=== PATIENT | female | born 2000 | race Caucasian/White ===

== ENCOUNTER → 2021-01-15 | Outpatient (REF) | LOC: M EMP 09:23 | PROVIDERS: ATTEND Family Medicine | DX: Z11.52 Encounter for screening for COVID-19 (principal); Z20.822 Contact with and (suspected) exposure to COVID-19 ==

== ENCOUNTER 2021-02-19 17:49 | Emergency (ER) ==
[~2021-02-19] VITALS: Ht 147.3 cm; Wt 59.1 kg
[2021-02-19 17:50] VITALS: BP 127/82
[2021-02-19] MEDS ORDERED: MELA10CA6 PO (18:05)
== END 2021-02-19 19:32 | disposition left against medical advice (07) ==
LOC: M ED 17:49
DX: Z53.29 Procedure and treatment not carried out because of patient's decision for other reasons (principal)

== ENCOUNTER → 2021-05-08 | Outpatient (CLI) | payer OTHER ==
[~2021-05-08] MED LIST: MELA10CA6 PO
== END ==
LOC: M PAIN 08:30
PROVIDERS: ATTEND Nurse Practitioner Family
DX: M54.50 Low back pain, unspecified (principal); G89.29 Other chronic pain; M79.10 Myalgia, unspecified site; M41.9 Scoliosis, unspecified; Z91.018 Allergy to other foods

== ENCOUNTER 2021-06-10 07:00 | Outpatient (RCR) | payer OTHER | END 2021-06-11 | LOC: M PT 07:00 | PROVIDERS: ATTEND Family Medicine | DX: M54.50 Low back pain, unspecified (principal) ==

== ENCOUNTER → 2021-07-06 | Outpatient (CLI) | payer OTHER | LOC: M PAIN 08:30 | PROVIDERS: ATTEND Nurse Practitioner Family | DX: M54.50 Low back pain, unspecified (principal); M79.10 Myalgia, unspecified site; M41.9 Scoliosis, unspecified; Z91.018 Allergy to other foods ==

== ENCOUNTER 2021-07-08 07:00 | Outpatient (RCR) | payer OTHER | END 2021-07-11 | LOC: M PT 07:00 | PROVIDERS: ATTEND Family Medicine | DX: M54.50 Low back pain, unspecified (principal) ==

== ENCOUNTER 2021-08-05 06:14 | Day surgery (SDC) | payer OTHER ==
[~2021-08-05] VITALS: Ht 147.3 cm; Wt 57.5 kg
[~2021-08-05 06:14] MED LIST changes: +VITA100024 PO; +XULA1DIS TOP; +ceFAZolin SOD 2 GM in IV 1 EA IV ONE
[2021-08-05] MEDS ORDERED: INSULIN LISPRO (NovoLOG) PER UNIT SC PRN ×2 (06:35→10:25)
[2021-08-05] MEDS ORDERED: LR 1,000 ML IV SCH ×2 (06:35→10:25)
[2021-08-05] MEDS ORDERED: propofoL 500 MG/50 ML VIAL As Ordered ONE (07:14)
[2021-08-05] MEDS ORDERED: MIDAZOLAM INJ 2MG/2ML VIAL (J2250 PER 1MG) As Ordered ONE ×2 (07:14→07:57)
[2021-08-05] MEDS ORDERED: LIDOCAINE 2% 100MG/5ML SDV (FOR ANES.) As Ordered ONE (07:15)
[2021-08-05] MEDS ORDERED: fentaNYL 100 MCG/2 ML INJECTION As Ordered ONE (07:15)
[2021-08-05] MEDS ORDERED: dexameTHASONE 4 MG/ML 1ML VIAL (J1100 PER 1MG) As Ordered ONE ×2 (07:15→07:17)
[2021-08-05] MEDS ORDERED: ONDANSETRON 4MG/2ML VIAL As Ordered ONE (07:15)
[2021-08-05] MEDS ORDERED: LIDOCAINE 1% SDV 30ML VIAL As Ordered ONE (07:17)
[2021-08-05] MEDS ORDERED: BUPIVACAINE HCL 0.5% 30ML VIAL As Ordered ONE (07:17)
[2021-08-05] MEDS ORDERED: diphenhydrAMINE 50MG/ML VIAL (J1200) As Ordered ONE (07:36)
[2021-08-05] MEDS ORDERED: HYDROMORPHONE HCL 0.5 MG/ 0.5 ML SYRINGE (J1170 PER 1) IV PRN (10:25)
[2021-08-05] MEDS: oxyCODONE 5MG TAB PO PRN ×2 (10:46→11:18)
[2021-08-05] MEDS: fentaNYL 100 MCG/2 ML INJECTION IV PRN ×4 (10:47→11:10)
[2021-08-05 11:45] VITALS: BP 116/62
== END 2021-08-05 12:40 | disposition home or self-care (01) ==
LOC: M SDC 06:14
PROVIDERS: ATTEND Podiatrist Foot & Ankle Surgery
DX: T84.84XA Pain due to internal orthopedic prosthetic devices, implants and grafts, initial encounter (principal); Z47.2 Encounter for removal of internal fixation device; Z91.018 Allergy to other foods; Z88.8 Allergy status to other drugs, medicaments and biological substances; B00.1 Herpesviral vesicular dermatitis; Z79.899 Other long term (current) drug therapy
CPT/HCPCS: 20680; 76000; 81025; J0690; J1100; J1200; J2250; J2405; J3010

== ENCOUNTER → 2021-08-14 | Outpatient (CLI) | payer OTHER ==
[~2021-08-14] MED LIST changes: -ceFAZolin SOD 2 GM in IV 1 EA IV ONE
== END ==
LOC: M PAIN 09:15
PROVIDERS: ATTEND Nurse Practitioner Family
DX: M79.18 Myalgia, other site (principal); M54.9 Dorsalgia, unspecified; M79.671 Pain in right foot; M79.672 Pain in left foot; Z79.891 Long term (current) use of opiate analgesic; Z88.8 Allergy status to other drugs, medicaments and biological substances; Z91.018 Allergy to other foods

== ENCOUNTER 2021-11-05 15:30 | Emergency (ER) | payer OTHER ==
[~2021-11-05] VITALS: Ht 147.3 cm; Wt 58.5 kg
[2021-11-05] MEDS ORDERED: diphenhydrAMINE 50MG CAP PO ONE (16:05)
[2021-11-05] MEDS ORDERED: EPIP0.3I2 IM (18:23)
[2021-11-05 18:58] VITALS: BP 109/68
== END 2021-11-05 19:00 | disposition home or self-care (01) ==
LOC: M ED 15:30
DX: R21 Rash and other nonspecific skin eruption (principal); Z91.018 Allergy to other foods; Z88.8 Allergy status to other drugs, medicaments and biological substances; Z79.3 Long term (current) use of hormonal contraceptives

== ENCOUNTER → 2021-12-08 | Outpatient (REF) ==
[~2021-12-08] MED LIST changes: +EPIP0.3I2 IM
== END ==
LOC: M EMP 09:17
PROVIDERS: ATTEND Family Medicine
DX: Z20.822 Contact with and (suspected) exposure to COVID-19 (principal)

== ENCOUNTER 2022-09-09 22:42 | Outpatient (CLI) | payer OTHER ==
[~2022-09-09] VITALS: Ht 147.3 cm; Wt 65.2 kg
[2022-09-09] MEDS ORDERED: PYRI100L PO (22:59)
[2022-09-09] MEDS ORDERED: UNIS25TA3 PO (22:59)
[2022-09-09] MEDS ORDERED: PRENTAB9 PO (22:59)
[2022-09-09] MEDS ORDERED: HOME MED LIST COMPLETE! XX SCH (23:00)
[2022-09-09 23:09] VITALS: BP 124/79
== END 2022-09-09 23:55 | disposition home or self-care (01) ==
LOC: M LDO 22:42
PROVIDERS: ATTEND Obstetrics & Gynecology
DX: O23.593 Infection of other part of genital tract in pregnancy, third trimester (principal); Z3A.32 32 weeks gestation of pregnancy; Z88.1 Allergy status to other antibiotic agents; Z88.8 Allergy status to other drugs, medicaments and biological substances; Z91.018 Allergy to other foods; Z79.899 Other long term (current) drug therapy
CPT/HCPCS: 59025; G0463

== ENCOUNTER 2022-09-15 16:09 | Outpatient (CLI) | payer OTHER ==
[~2022-09-15] VITALS: Ht 147.3 cm; Wt 65.9 kg
[~2022-09-15 16:09] MED LIST changes: +PRENTAB9 PO; +PYRI100L PO; +UNIS25TA3 PO
[2022-09-15 16:27] VITALS: BP 124/63
[2022-09-15] MEDS ORDERED: HOME MED LIST COMPLETE! XX SCH (16:35)
[2022-09-15 17:50] LABS: APPEARANCE, URINE CLOUDY (CLEAR); BACTERIA, URINE AUTO 1+ (NEGATIVE); BILIRUBIN, URINE AUTO NEGATIVE (NEGATIVE); BLOOD, URINE BLOOD NEGATIVE (NEGATIVE); COLOR, URINE YELLOW (YELLOW); GLUCOSE, URINE (UA) AUTO NEGATIVE (NEGATIVE); KETONE, URINE AUTO TRACE mg/dL (NEGATIVE); LEUKOCYTE ESTERASE, URINE AUTO NEGATIVE (NEGATIVE); MUCUS, URINE SMALL (NEGATIVE); NITRITE, URINE AUTO NEGATIVE (NEGATIVE); PROTEIN, URINE AUTO NEGATIVE (NEGATIVE); RBC, URINE AUTO 0 /HPF (0-3); SPECIFIC GRAVITY URINE AUTO 1.018 (1.002-1.035); SQUAMOUS EPITHELIAL CELL UR AU 3 /HPF (0-6); UROBILINOGEN, URINE AUTO 0.2 mg/dL (0.0-2.0); WBC, URINE AUTO 1 /HPF (0-3)
[2022-09-15] MEDS ORDERED: FLUCONAZOLE 50MG TABLET PO ONE (18:00)
[2022-09-15 18:44] VITALS: BP 117/62
[2022-09-15] MEDS ORDERED: FOSFOMYCIN TROMETHAMINE 3 GM POWDER PACKET (MONUROL) PO ONE (20:00)
[2022-09-15 21:47] LABS: GC DNA AMPLIFICATION NEGATIVE (NEGATIVE)
== END 2022-09-15 18:50 | disposition home or self-care (01) ==
LOC: M LDO 16:09
PROVIDERS: ATTEND Obstetrics & Gynecology
DX: O23.593 Infection of other part of genital tract in pregnancy, third trimester (principal); O23.43 Unspecified infection of urinary tract in pregnancy, third trimester; N39.0 Urinary tract infection, site not specified; Z3A.33 33 weeks gestation of pregnancy; Z88.1 Allergy status to other antibiotic agents; Z88.8 Allergy status to other drugs, medicaments and biological substances; Z91.018 Allergy to other foods; Z79.899 Other long term (current) drug therapy
CPT/HCPCS: 59025; 81001; 87081; 87086; 87810; 87850; G0463

== ENCOUNTER 2022-09-20 13:38 | Observation (INO) | payer OTHER ==
[~2022-09-20] VITALS: Ht 147.3 cm; Wt 65.8 kg
[2022-09-20 13:48] VITALS: BP 127/78
[2022-09-20] MEDS ORDERED: HOME MED LIST COMPLETE! XX SCH (14:00)
[2022-09-20] MEDS ORDERED: LR 1,000 ML IV ONE (14:20)
[2022-09-20 15:21] LABS: HEMATOCRIT 37.4 % (36.0-47.0); HEMOGLOBIN 12.9 g/dl (12.0-15.5); MEAN CORPUSCULAR HEMOGLOBIN 31.3 pg (27.0-33.0); MEAN CORPUSCULAR HGB CONC 34.5 g/dl (32.0-36.5); MEAN CORPUSCULAR VOLUME 90.8 fl (80.0-96.0); PLATELET COUNT, AUTOMATED 259 10^3/uL (150-450); RED BLOOD COUNT 4.12 10^6/uL (4.00-5.40); WHITE BLOOD COUNT 16.6 10^3/uL (4.0-10.0)
[2022-09-20] MEDS: cefTRIAXone SOD 1 GM in D5W MINI-BAG PLUS 50 ML IV SCH (15:52)
[2022-09-20 15:55] VITALS: BP 100/57
[2022-09-20] MEDS: BETAMETHASONE SOLUSPAN 6MG/ML 5ML VIAL IM SCH (16:44)
[2022-09-20] MEDS ORDERED: MORPHINE 10 MG/ML 1ML VIAL IV PRN (17:30)
[2022-09-20] MEDS ORDERED: PROMETHAZINE 25MG/ML 1ML VIAL IV PRN (17:30)
[2022-09-20 19:02] VITALS: BP 118/67
[2022-09-20] MEDS ORDERED: CALCIUM CARBONATE 500 MG CHEW U/D PO PRN (23:40)
[2022-09-20] MEDS: FAMOTIDINE 20 MG TAB PO SCH (23:51)
[2022-09-21 07:54] VITALS: BP 108/52
[2022-09-21] MEDS: FAMOTIDINE 20 MG TAB PO SCH (09:45)
[2022-09-21 09:58] VITALS: BP 104/58
[2022-09-21 13:58] VITALS: BP 101/53
[2022-09-21] MEDS: cefTRIAXone SOD 1 GM in D5W MINI-BAG PLUS 50 ML IV SCH (16:08)
[2022-09-21] MEDS: BETAMETHASONE SOLUSPAN 6MG/ML 5ML VIAL IM SCH (16:52)
== END 2022-09-21 17:20 | disposition home or self-care (01) ==
LOC: M LDO 13:38 → M LDI 13:39
PROVIDERS: ADMIT Obstetrics & Gynecology; ATTEND Obstetrics & Gynecology
DX: O60.03 Preterm labor without delivery, third trimester (principal); O23.593 Infection of other part of genital tract in pregnancy, third trimester; O99.113 Other diseases of the blood and blood-forming organs and certain disorders involving the immune mechanism complicating pregnancy, third trimester; Z3A.34 34 weeks gestation of pregnancy; Z79.899 Other long term (current) drug therapy
CPT/HCPCS: 59025; 76775; 76815; 76820; 82731; 85027; 87086; 96372; 96374; 96376; G0463; J0696; J0702

== ENCOUNTER 2022-11-04 20:37 | Inpatient (IN) | payer OTHER ==
[~2022-11-04] VITALS: Ht 147.3 cm; Wt 67.9 kg
[2022-11-04 21:01] VITALS: BP 138/78
[2022-11-04] MEDS ORDERED: LACTATED RINGER'S 1000 ML IV STA (21:36)
[2022-11-04] MEDS ORDERED: LR 1,000 ML IV SCH ×2 (21:40)
[2022-11-04] MEDS ORDERED: OXYTOCIN DRIP 30 UNITS in IV 1 EA IV SCH (21:40)
[2022-11-04] MEDS ORDERED: OXYTOCIN INJ 10UNITS/ML 1ML VIAL IM PRN (21:40)
[2022-11-04] MEDS ORDERED: CARBOPROST TROMETHAMINE 250 MCG/ML AMP IM PRN (21:40)
[2022-11-04] MEDS ORDERED: LIDOCAINE 1% MDV 20ML VIAL INFIL PRN (21:40)
[2022-11-04] MEDS ORDERED: TRANEXAMIC ACID INJection 1,000 MG in NS 100 ML IV PRN (21:40)
[2022-11-04] MEDS ORDERED: OXYTOCIN DRIP 30 UNITS in IV 1 EA IV PRN ×6 (21:40)
[2022-11-04] MEDS ORDERED: METHYLERGONOVINE MALEATE 0.2MG/ML 1ML VIAL IM PRN (21:40)
[2022-11-04] MEDS ORDERED: OXYTOCIN INJ 10UNITS/ML 1ML VIAL IV PRN (21:40)
[2022-11-04 21:41] LABS: HEMATOCRIT 37.1 % (36.0-47.0); MEAN CORPUSCULAR HEMOGLOBIN 31.6 pg (27.0-33.0); MEAN CORPUSCULAR VOLUME 90.3 fl (80.0-96.0); PLATELET COUNT, AUTOMATED 234 10^3/uL (150-450); RED BLOOD COUNT 4.11 10^6/uL (4.00-5.40); WHITE BLOOD COUNT 20.2 10^3/uL (4.0-10.0)
[2022-11-04 23:50] VITALS: BP 126/79
[2022-11-05 02:08] VITALS: BP 136/66
[2022-11-05] MEDS ORDERED: KETOROLAC 30 MG/ML 1ML VIAL As Ordered ONE (06:06)
[2022-11-05] MEDS ORDERED: KETOROLAC 30 MG/ML 1ML VIAL IV ONE (06:10)
[2022-11-05] MEDS ORDERED: RHOGAM 300MCG (1500IU) INJ IM SCH (06:30)
[2022-11-05] MEDS ORDERED: IBUPROFEN 600MG TAB PO PRN (06:30)
[2022-11-05] MEDS ORDERED: ACETAMINOPHEN TAB 650MG DOSE (2X325MG) PO PRN (06:30)
[2022-11-05] MEDS ORDERED: METHYLERGONOVINE MALEATE 0.2 MG TAB PO PRN (06:30)
[2022-11-05] MEDS ORDERED: DIBUCAINE 1% OINTMENT 30GM TOP PRN (06:30)
[2022-11-05 07:02] VITALS: BP 118/67
[2022-11-05] MEDS: ACETAMINOPHEN 500 MG TAB PO PRN ×2 (07:55→19:25)
[2022-11-05] MEDS ORDERED: HOME MED LIST COMPLETE! XX SCH (08:30)
[2022-11-05] MEDS ORDERED: VALA500T5 PO (08:30)
[2022-11-05] MEDS: PRENATAL VITAMINS CHEWABLE TABLET PO SCH (09:00)
[2022-11-05 09:10] VITALS: BP 114/69; O2SAT 98
[2022-11-05] MEDS: DOCUSATE SODIUM 100MG CAPSULE PO PRN (14:26)
[2022-11-05] MEDS: IBUPROFEN 800 MG TAB PO PRN (14:26)
[2022-11-05 18:00] VITALS: BP 110/61; O2SAT 97
[2022-11-06] MEDS: IBUPROFEN 800 MG TAB PO PRN ×2 (01:47→12:22)
[2022-11-06] MEDS: DOCUSATE SODIUM 100MG CAPSULE PO PRN (02:26)
[2022-11-06 05:54] VITALS: BP_SYST 112; BP_SYST 88; BP_DIAS 53; BP_DIAS 62; O2SAT 99
[2022-11-06] MEDS: ACETAMINOPHEN 500 MG TAB PO PRN ×2 (06:19→19:17)
[2022-11-06] MEDS: PRENATAL VITAMINS CHEWABLE TABLET PO SCH (09:25)
[2022-11-06] MEDS: MIRALAX *UNIT DOSE* 17GM PACKET PO PRN (12:21)
[2022-11-06 18:00] VITALS: BP 97/52; O2SAT 100
[2022-11-07] MEDS: DOCUSATE SODIUM 100MG CAPSULE PO PRN (00:47)
[2022-11-07] MEDS: IBUPROFEN 800 MG TAB PO PRN (00:47)
[2022-11-07] MEDS: MIRALAX *UNIT DOSE* 17GM PACKET PO PRN (00:52)
[2022-11-07 06:00] VITALS: BP 99/56; O2SAT 98
[2022-11-07] MEDS: PRENATAL VITAMINS CHEWABLE TABLET PO SCH (08:49)
[2022-11-07] MEDS: ACETAMINOPHEN 500 MG TAB PO PRN (08:49)
[2022-11-07] MEDS ORDERED: MEASLES,MUMPS,RUBELLA VACCINE INJ (MMR-II) SC.IMMUN ONE (09:00)
[2022-11-07] MEDS ORDERED: IBUP-1022 PO (11:20)
[2022-11-07] MEDS ORDERED: COLA100C5 PO (11:20)
[2022-11-07] MEDS ORDERED: ACET1TAB55 PO (11:20)
== END 2022-11-07 12:40 | disposition home or self-care (01) | DRG 807 ==
LOC: M LDO 20:37 → M LDI 21:11 → M OBS 11-05 08:55
PROVIDERS: ADMIT Obstetrics & Gynecology; ATTEND Obstetrics & Gynecology
PROC: 10E0XZZ Delivery of Products of Conception, External Approach (ICD-10-PCS; principal; 2022-11-05)
PROC: 0KQM0ZZ Repair Perineum Muscle, Open Approach (ICD-10-PCS; 2022-11-05)
DX: O70.1 Second degree perineal laceration during delivery (principal); Z37.0 Single live birth; Z3A.40 40 weeks gestation of pregnancy

== ENCOUNTER → 2023-02-04 | Outpatient (CLI) | payer OTHER ==
[~2023-02-04] MED LIST changes: +ACET1TAB55 PO; +COLA100C5 PO; +IBUP-1022 PO; +VALA500T5 PO
== END ==
LOC: M EKG 11:54
PROVIDERS: ATTEND Student in an Organized Health Care Education/Training Program
DX: R07.89 Other chest pain (principal); Z53.9 Procedure and treatment not carried out, unspecified reason

== ENCOUNTER 2023-06-07 07:25 | Day surgery (SDC) | payer OTHER ==
[~2023-06-07] VITALS: Ht 124.5 cm; Wt 59.9 kg
[~2023-06-07 07:25] MED LIST changes: +LR 1,000 ML IV SCH; +MULTTAB20 PO; +OMEP40CA5 PO
[2023-06-07 08:07] LABS: HEMATOCRIT 40.1 % (36.0-47.0); HEMOGLOBIN 13.3 g/dl (12.0-15.5); MEAN CORPUSCULAR HEMOGLOBIN 28.9 pg (27.0-33.0); MEAN CORPUSCULAR HGB CONC 33.2 g/dl (32.0-36.5); PLATELET COUNT, AUTOMATED 271 10^3/uL (150-450); RED BLOOD COUNT 4.61 10^6/uL (4.00-5.40); WHITE BLOOD COUNT 7.1 10^3/uL (4.0-10.0)
[2023-06-07] MEDS ORDERED: ROCURONIUM BROMIDE 50MG/5ML VIAL As Ordered ONE (09:10)
[2023-06-07] MEDS ORDERED: LIDOCAINE 2% 100MG/5ML SDV (FOR ANES.) As Ordered ONE (09:12)
[2023-06-07] MEDS ORDERED: ePHEDrine SULFATE 25 MG/5 ML(5MG/ML) SYRINGE As Ordered ONE (09:12)
[2023-06-07] MEDS ORDERED: propofoL 200 MG/20 ML VIAL As Ordered ONE (09:12)
[2023-06-07] MEDS ORDERED: PHENYLephrine 500MCG 5ML (100MCG/ML) SYRINGE As Ordered ONE (09:12)
[2023-06-07] MEDS ORDERED: KETOROLAC 60MG 2ML VIAL As Ordered ONE (09:13)
[2023-06-07] MEDS: LIDOCAINE 1% SDV 30ML VIAL As Ordered ONE (09:59)
[2023-06-07] MEDS: SILVER NITRATE APPLICATOR (1 = QTY 10) As Ordered ONE (09:59)
[2023-06-07] MEDS ORDERED: LR 1,000 ML IV SCH (10:25)
[2023-06-07] MEDS ORDERED: HYDROMORPHONE HCL 0.5 MG/ 0.5 ML SYRINGE IV PRN (10:25)
[2023-06-07] MEDS ORDERED: fentaNYL 100 MCG/2 ML INJECTION IV PRN (10:25)
[2023-06-07] MEDS: oxyCODONE 5MG TAB PO PRN (11:02)
[2023-06-07 11:35] VITALS: BP 85/50; TEMP 97.6; O2SAT 99
== END 2023-06-07 11:45 | disposition home or self-care (01) ==
LOC: M SDC 07:25
PROVIDERS: ATTEND Obstetrics & Gynecology
DX: N84.2 Polyp of vagina (principal); N81.10 Cystocele, unspecified; B00.1 Herpesviral vesicular dermatitis; Z79.899 Other long term (current) drug therapy; Z88.8 Allergy status to other drugs, medicaments and biological substances; Z87.891 Personal history of nicotine dependence
CPT/HCPCS: 36415; 57135; 81025; 85027; 86850; 86900; 86901; 88305; J1885; J2371